=== PATIENT | female | born 1975 | race Asian ===

== ENCOUNTER → 2017-04-24 | Outpatient (CLI) | payer BC ==
--- NOTE | ~2017-04-24 | CR63 ---
[facility] A Service of [facility] RADIOLOGY TEXT RESULTS PATIENT: JORDYN MAHER LOCATION: [facility] : 75 UNIT #: [id number] AGE: [address]: Naheed Butts MD SEX: F ORDER DR: [id number] [facility] [address] [facility]. [place], [place] [address] [id number] O MR#: [id number] Acc #: [id number] NAME: JORDYN MAHER : 1975 SEX: F STUDY DATE/TIME: 04/24/2017 15:30 UNIT: [facility] ROOM: STUDY DESCRIPTION: CR Chest 2 View Attending Physician: Naheed Butts M.D. Referring Physician: Naheed Butts M.D. Ordering Physician: Naheed Butts M.D. Primary Care Physician: Naheed Butts M.D. MEDICAL IMAGING REPORT This report is preliminary unless electronic signature is present EXAM Two view chest INDICTIONS: Asthma. Shortness of air for two weeks. Hypertension. FINDINGS PA and lateral view of the chest without comparison. Heart and mediastinal contours normal. Lungs are clear. No pleural effusion. IMPRESSION No cardiopulmonary findings. Dictated by... Peewee Bass M.D. THIS IS AN ELECTRONICALLY VERIFIED REPORT Peewee Bass M.D. at 04/26/2017 9:48 AM DOMINICK/yuan TD: 04/25/2017 09:14 JOB #: [id number] MEDICAL IMAGING REPORT Page 1 of 1 COPY
== END | disposition home or self-care (01) ==
LOC: CRAD 15:04
DX: J45.909 Unspecified asthma, uncomplicated (principal); I10 Essential (primary) hypertension
CPT/HCPCS: 71020